=== PATIENT | female | born 1965 | race Caucasian/White ===

== ENCOUNTER 2021-04-25 04:22 | Day surgery (SDC) | payer OTHER ==
[2021-04-24 09:22] VITALS: BMI 32.7
[2021-04-25] MEDS ORDERED: ISOSULFAN BLUE 50 MG/5 ML VIAL SQ ONE (08:19)
[2021-04-25] MEDS ORDERED: LIDOCAINE HCL 1%, 10 MG/ML (20ML VIAL) ONE (08:22)
[2021-04-25] MEDS ORDERED: MIDAZOLAM HCL 2 MG/2 ML SINGLE DOSE VIAL ONE (08:25)
[2021-04-25] MEDS ORDERED: PROPOFOL 20 ML ONE ×3 (08:26)
[2021-04-25] MEDS ORDERED: SUCCINYLCHOLINE CHLORIDE 200 MG/10 ML SYRINGE ONE (08:27)
[2021-04-25] MEDS ORDERED: ROCURONIUM BROMIDE 50 MG/5 ML SYRINGE ONE (08:27)
[2021-04-25] MEDS ORDERED: ceFAZolin SODIUM 1 GM VIAL IVPB ONE (09:50)
[2021-04-25] MEDS ORDERED: LIDOCAINE HCL 1%, 10 MG/ML (20ML VIAL) NR ONE (11:00)
[2021-04-25] MEDS ORDERED: oxyCODONE HCL 5 MG TABLET PO PRN (13:05)
[2021-04-25] MEDS ORDERED: ONDANSETRON 4 MG/2 ML VIAL IVPUSH PRN (13:05)
[2021-04-25] MEDS ORDERED: LACTATED RINGERS SOLUTION 1,000 ML IV SCH (13:15)
[2021-04-25 16:21] VITALS: BP 115/69; PULSE 74; TEMP 98.1
== END 2021-04-25 16:22 | disposition home or self-care (01) ==
LOC: JASU-SURG 04:22
PROVIDERS: ATTEND Surgery
PROC: 0HBU0ZZ Excision of Left Breast, Open Approach (ICD-10-PCS; principal; 2021-04-25 09:00)
PROC: 07B60ZX Excision of Left Axillary Lymphatic, Open Approach, Diagnostic (ICD-10-PCS; 2021-04-25 09:00)
DX: C50.912 Malignant neoplasm of unspecified site of left female breast (principal); C77.3 Secondary and unspecified malignant neoplasm of axilla and upper limb lymph nodes; Z17.1 Estrogen receptor negative status [ER-]; E11.9 Type 2 diabetes mellitus without complications; Z79.84 Long term (current) use of oral hypoglycemic drugs
CPT/HCPCS: 78195-TC; 82962; 88307-TC; 88342-TC; 93005; 93010; 94760; A9541

== ENCOUNTER 2021-06-26 04:42 | Day surgery (SDC) | payer OTHER ==
[2021-06-21 12:39] VITALS: BMI 30.4
[2021-06-26] MEDS ORDERED: LIDOCAINE HCL 1%, 10 MG/ML (20ML VIAL) ONE ×2 (09:54→11:09)
[2021-06-26] MEDS ORDERED: HEPARIN NA (PORCINE) 5,000 UNITS/ML 1ML VIAL ONE (09:54)
[2021-06-26] MEDS ORDERED: PROPOFOL 20 ML ONE ×2 (10:42)
[2021-06-26] MEDS ORDERED: MIDAZOLAM HCL 2 MG/2 ML SINGLE DOSE VIAL ONE (10:43)
[2021-06-26] MEDS ORDERED: SUCCINYLCHOLINE CHLORIDE 200 MG/10 ML SYRINGE ONE (10:43)
[2021-06-26] MEDS ORDERED: ceFAZolin SODIUM 1 GM VIAL IVPB ONE (10:52)
[2021-06-26] MEDS ORDERED: ceFAZolin SODIUM 1 GM VIAL ONE (10:53)
[2021-06-26] MEDS ORDERED: ONDANSETRON 4 MG/2 ML VIAL ONE (10:53)
[2021-06-26] MEDS ORDERED: LIDOCAINE HCL 1%, 10 MG/ML (50 mL VIAL) INF ONE (10:59)
[2021-06-26] MEDS ORDERED: oxyCODONE HCL 5 MG TABLET PO PRN (11:35)
[2021-06-26] MEDS ORDERED: ONDANSETRON 4 MG/2 ML VIAL IVPUSH PRN (11:35)
[2021-06-26] MEDS ORDERED: LACTATED RINGERS SOLUTION 1,000 ML IV SCH (11:45)
[2021-06-26 13:50] VITALS: TEMP 97
[2021-06-26 14:26] VITALS: BP 114/63; PULSE 70
== END 2021-06-26 14:30 | disposition home or self-care (01) ==
LOC: JASU-SURG 04:42
PROVIDERS: ATTEND Surgery
PROC: B518ZZA Fluoroscopy of Superior Vena Cava, Guidance (ICD-10-PCS; 2021-06-26)
PROC: 02HV33Z Insertion of Infusion Device into Superior Vena Cava, Percutaneous Approach (ICD-10-PCS; principal; 2021-06-26 10:00)
DX: C50.919 Malignant neoplasm of unspecified site of unspecified female breast (principal); E11.9 Type 2 diabetes mellitus without complications
CPT/HCPCS: 36561; C1788; 71045-TC-FY; 76000-TC-FY; 82962; 94760; J1644

== ENCOUNTER 2022-10-23 04:18 | Day surgery (SDC) | payer OTHER ==
[2022-10-19 13:35] VITALS: BMI 30.4
[2022-10-23] MEDS ORDERED: LIDOCAINE HCL 1%, 10 MG/ML (10ML VIAL) MDV ONE (07:45)
[2022-10-23] MEDS ORDERED: PROMETHAZINE HCL 25 MG/1 ML VIAL IVPB PRN (11:49)
[2022-10-23] MEDS ORDERED: ONDANSETRON 4 MG/2 ML VIAL IVPUSH PRN (11:49)
[2022-10-23] MEDS ORDERED: LACTATED RINGERS SOLUTION 1,000 ML IV SCH (12:00)
[2022-10-23] MEDS ORDERED: LIDOCAINE HCL 1%, 10 MG/ML (20ML VIAL) INF ONE ×2 (12:57)
[2022-10-23 13:40] VITALS: RESP 20
[2022-10-23 14:32] VITALS: BP 172/78; PULSE 76; TEMP 98
== END 2022-10-23 14:32 | disposition home or self-care (01) ==
LOC: JASU-SURG 04:18
PROVIDERS: ATTEND Surgery
PROC: 0JPT0WZ Removal of Totally Implantable Vascular Access Device from Trunk Subcutaneous Tissue and Fascia, Open Approach (ICD-10-PCS; principal; 2022-10-23 12:00)
DX: Z45.2 Encounter for adjustment and management of vascular access device (principal); C50.919 Malignant neoplasm of unspecified site of unspecified female breast
CPT/HCPCS: 82962